=== PATIENT | female | born 1985 | race African-American/Black ===

== ENCOUNTER 2023-10-11 08:40 | Emergency (ER) | payer MEDICAID ==
[~2023-10-11] VITALS: Ht 157.5 cm; Wt 94.5 kg
[2023-10-11 08:50] VITALS: BP 126/73; PULSE 99; RESP 18; TEMP 98.8
[2023-10-11 09:15] LABS: COVID AG,FIA SOURCE NASAL SWAB
[2023-10-11 09:36] LABS: SARS-COV2 (COVID) ANTIGEN,FIA Negative (Negative)
[2023-10-11 09:37] LABS: INFLUENZA TYPE A NEGATIVE FOR TYPE A (NEGATIVE); INFLUENZA TYPE B NEGATIVE FOR TYPE B (NEGATIVE)
[2023-10-11 09:39] LABS: RAPID GROUP A STREP POSITIVE (NEGATIVE)
[2023-10-11] MEDS ORDERED: CEPH-558 PO (10:27)
[2023-10-11] MEDS ORDERED: IBUP-1554 PO (10:27)
[2023-10-11] MEDS ORDERED: ACET-2080 PO (10:27)
[2023-10-11] MEDS: ACETAMINOPHEN/CODEINE 300-30 MG TABLET PO ONE (10:39)
== END 2023-10-11 10:56 | disposition home or self-care (01) ==
LOC: EMS 08:57
DX: J02.0 Streptococcal pharyngitis (principal); Z98.890 Other specified postprocedural states; Z20.822 Contact with and (suspected) exposure to COVID-19
CPT/HCPCS: 87430; 87804; 99283